=== PATIENT | male | born 1985 | race Caucasian/White ===

== ENCOUNTER 2022-03-29 14:13 | Day surgery (SDC) | payer MEDICAID, BC ==
[2022-03-29] MEDS ORDERED: Ondansetron 4 MG/2 ML SDV IVPUSH ONE (17:01)
[2022-03-29] MEDS ORDERED: Sodium Chloride 0.9% 1,000 ML IV SCH (17:15)
[2022-03-29] MEDS ORDERED: cefTRIAXone 2 GM in Premix Bag 1 BAG IV ONE (18:01)
[2022-03-29] MEDS ORDERED: metroNIDAZOLE/Normal Saline 500 MG in Premix Bag 1 BAG IV STA (18:01)
[2022-03-29] MEDS ORDERED: Morphine 4 MG/ML Syringe IVPUSH STA (18:02)
[2022-03-29 18:24] LABS: CARBON DIOXIDE,CO2 23.4 mmol/L (21.0-32.0); POTASSIUM,K 3.7 mmol/L (3.5-5.1)
[2022-03-29] MEDS ORDERED: Morphine 4 MG/ML Syringe IVPUSH ONE (18:32)
[2022-03-29] MEDS ORDERED: Ketorolac 30 MG/ML SDV IVPUSH ONE (18:32)
[2022-03-29] MEDS ORDERED: Iopamidol 755 MG/ML 500 ML Multipack Bottle IVPUSH STA (19:23)
[2022-03-29] MEDS ORDERED: Dexmedetomidine 200 MCG/2 ML SDV ONE (20:37)
[2022-03-29] MEDS ORDERED: Propofol 200 MG/20 ML SDV ONE (20:37)
[2022-03-29] MEDS ORDERED: Rocuronium Bromide 50 MG/5 ML Syringe ONE (20:37)
[2022-03-29] MEDS ORDERED: fentaNYL 100 MCG/2 ML SDV ONE ×3 (20:37→22:00)
[2022-03-29] MEDS ORDERED: Water For Injection, Sterile 20 ML ONE (20:38)
[2022-03-29] MEDS ORDERED: ceFAZolin 1 GM Vial ONE ×2 (20:42→20:50)
[2022-03-29] MEDS ORDERED: Magnesium Sulfate (4.06 MEQ/ML) 5 GM/10 ML SDV ONE (20:43)
[2022-03-29] MEDS ORDERED: Lidocaine 2% 5 ML SDV ONE (20:43)
[2022-03-29] MEDS ORDERED: Lactated Ringers 1,000 ML IV SCH ×2 (20:45→22:30)
[2022-03-29] MEDS ORDERED: Bupivacaine 0.5% 30 ML SDV ONE (20:50)
[2022-03-29] MEDS ORDERED: Dexamethasone 4 MG/ML 5 ML MDV ONE (21:28)
[2022-03-29] MEDS ORDERED: Sugammadex Sodium 200 MG/2 ML VIAL ONE (22:01)
[2022-03-29] MEDS ORDERED: Ondansetron 4 MG/2 ML SDV ONE (22:01)
[2022-03-29] MEDS ORDERED: Morphine 2 MG/ML SYRINGE IVPUSH PRN (22:34)
[2022-03-29] MEDS: cefOXitin 1 GM in Premix Bag 1 BAG IV SCH (23:14)
[2022-03-30] MEDS: cefOXitin 1 GM in Premix Bag 1 BAG IV SCH ×2 (03:48→10:55)
[2022-03-30] MEDS: Acetaminophen/HYDROcodone 325-5 MG Tab PO PRN ×2 (06:55→11:02)
== END 2022-03-30 15:02 | disposition home or self-care (01) ==
LOC: MW.ED 14:13 → MW.SDS 20:17 → MW.MS 20:48 → MW.SDS 03-30 15:02
PROVIDERS: ATTEND Surgery
DX: C18.1 Malignant neoplasm of appendix (principal); K35.32 Acute appendicitis with perforation, localized peritonitis, and gangrene, without abscess; F17.210 Nicotine dependence, cigarettes, uncomplicated; Z01.812 Encounter for preprocedural laboratory examination; Z20.822 Contact with and (suspected) exposure to COVID-19
CPT/HCPCS: 36415; 44970; 74177; 80053; 83605; 85025; 85610; 87040; 87635; A9270; J0131; J0690; J0694; J0696; J1100; J1885; J2270; J2405; J2704; J3010; J3475; J3490; J7030; J7120; Q9967; 00840; U0002